=== PATIENT | male | born 1950 | race Caucasian/White ===

== ENCOUNTER 2020-06-15 01:13 | Emergency (ER) | payer MEDICARE ==
--- NOTE | 2020-06-15 01:27 | EDM.PDOC ---
ED HPI GENERAL MEDICAL PROBLEM - General Chief Complaint: General Stated Complaint: FALL Time Seen by Provider: 06/15/20 01:13 Source of Information: Reports: Patient, EMS History Limitations: Reports: Intoxication - History of Present Illness INITIAL COMMENTS - FREE TEXT/NARRATIVE: 69 year old male with PMH HTN presents to ED after a fall down 8 wooden steps into his basement. Patient admits to ETOH. Left eye swollen and bruised, left ear laceration 0.5 cm. Denies any pain, CP, SOB, abdominal pain, neck/back pain. He does not remember falling or "anything", when EMS arrived patient was sitting at the table upstairs. Ambulatory on arrival. Onset: Today Improves with: Reports: None Worsens with: Reports: None - Related Data Allergies Allergy/AdvReac Type Severity Reaction Status Date / Time No Known Allergies Allergy Verified 06/15/20 01:36 Home Meds: Home Meds Sildenafil [Revatio] 2 - 3 tab PO ASDIRECTED PRN 06/15/20 [History] lisinopriL [Lisinopril] 20 mg PO DAILY 06/15/20 [History] ED ROS GENERAL - Review of Systems Review Of Systems: See Below Constitutional: Reports: No Symptoms HEENT: Reports: Ear Pain, Eye Pain (denies pain but obvious bruising/swelling), Nosebleed Respiratory: Reports: No Symptoms Cardiovascular: Reports: No Symptoms Endocrine: Reports: No Symptoms GI/Abdominal: Reports: No Symptoms : Reports: No Symptoms Musculoskeletal: Reports: No Symptoms Skin: Reports: Bruising, Wound Neurological: Reports: Change in Speech, Other (intoxicated) Psychiatric: Reports: No Symptoms Hematologic/Lymphatic: Reports: No Symptoms Immunologic: Reports: No Symptoms ED EXAM, GENERAL - Physical Exam Exam: See Below Exam Limited By: Intoxication General Appearance: Alert, No Apparent Distress Eye Exam: Left Eye: Periorbital Changes (swelling/bruising), Other (left eye swelling), Bilateral Eye: Normal Inspection, PERRL (slow, sluggish) Ears: Normal Canal, Hearing Grossly Normal, Normal TMs, Other (0.5 cm laceration to left ear superior arti anterior side, 0.5 cm and 1cm lacerations ro posterior side) Ear Exam: Left Ear: Bleeding (superior arti 0.5 cm laceration anterior, posterior 0.5 cm, 1cm posterior), Swelling, Tenderness, Bilateral Ear: Auricle Normal, Canal Normal, TM normal Nose: Normal Inspection, Other (dries blood in bilateral nares) Throat/Mouth: Normal Inspection, Normal Lips, Normal Gums, Normal Oropharynx (no teeth), Normal Voice, No Airway Compromise Head: Facial Swelling Neck: Normal Inspection, Non-Tender, Full Range of Motion Respiratory/Chest: No Respiratory Distress, Lungs Clear, Normal Breath Sounds, No Accessory Muscle Use, Chest Non-Tender Cardiovascular: Normal Peripheral Pulses, Regular Rate, Rhythm, No Edema, No J VD, No Murmur Peripheral Pulses: 3+: Radial (L), Radial (R), Posterior Tibial (L), Posterior Tibial (R), Dorsalis Pedis (L), Dorsalis Pedis (R) GI/Abdominal: Normal Bowel Sounds, Soft, Non-Tender, Hernia Back Exam: Normal Inspection, Full Range of Motion Extremities: Normal Inspection, Normal Range of Motion, Non-Tender, No Pedal Edema, Normal Capillary Refill Neurological: Alert, Oriented, CN II-XII Intact, Normal Gait, Normal Reflexes (intoxicated), No Motor/Sensory Deficits Psychiatric: Normal Affect Skin Exam: Warm, Dry, Normal Color, No Rash, Wound/Incision (abrasion noted to left forearm) Lymphatic: No Adenopathy ED GENERAL MEDICAL PROCEDURES - Laceration/Wound Repair Left Upper Posterior Ear Lac/wound length in cm: 0.5 Distal NVT: Neuro & Vascular Intact Skin Prep: Providone-Iodine (Betadine), Saline Exploration/Debridement/Repair: Wound Explored Closed with: Dermabond (patient refused stitches to left ear) Left Posterior Ear Lac/wound length in cm: 1 Appearance: Superficial Distal NVT: Neuro & Vascular Intact Skin Prep: Saline Exploration/Debridement/Repair: Wound Explored Closed with: Dermabond Left Anterior Ear Lac/wound length in cm: 0.5 Appearance: Superficial Distal NVT: Neuro & Vascular Intact Skin Prep: Saline Exploration/Debridement/Repair: Wound Explored Closed with: Dermabond Course - Vital Signs Last Recorded V/S: Last Vital Signs Temp 98.7 F 06/15/20 01:16 Pulse 99 06/15/20 03:08 Resp 15 06/15/20 03:08 BP 134/84 06/15/20 03:08 Pulse Ox 99 06/15/20 03:08 - Orders/Labs/Meds Orders: Active Orders 24 hr Category Date Time Status Assess Neurological Status [RC] ASDIRECTED Care 06/15/20 02:12 Active Cardiac Monitoring [RC] .As Directed Care 06/15/20 02:00 Active EKG Documentation Completion [RC] ASDIRECTED Care 06/15/20 02:27 Active Neurological Monitoring [RC] ASDIRECTED Care 06/15/20 02:12 Active Cervical Spine wo Cont [CT] Stat Exams 06/15/20 01:20 Taken Head wo Cont [CT] Stat Exams 06/15/20 01:20 Taken Sodium Chloride 0.9% [Saline Flush] Med 06/15/20 02:20 Active 10 ml FLUSH ASDIRECTED PRN Peripheral IV Insertion Adult [OM.PC] Routine Oth 06/15/20 02:20 Ordered Medication Orders Sodium Chloride (Sodium Chloride 0.9% 10 Ml Syringe) 10 ml FLUSH ASDIRECTED PRN PRN Reason: Keep Vein Open Labs: Laboratory Tests 06/15/20 06/15/20 06/15/20 Range/Units 02:20 02:20 02:20 WBC 15.9 H D (4.0-11.0) K/uL RBC 4.55 (4.50-6.50) M/uL Hgb 15.0 (13.0-18.0) g/dL Hct 43.6 (40.0-54.0) % MCV 96 (76-96) fL MCH 33.0 H (27.0-32.0) pg MCHC 34.4 (31.0-35.0) g/dL RDW 12.1 (11.0-16.0) % Plt Count 267 D (150-400) K/uL MPV 10.3 H (6.0-10.0) fL Neut % (Auto) 88.9 H (45.0-70.0) % Lymph % (Auto) 6.4 L (20.0-40.0) % Preston % (Auto) 3.5 (3.0-10.0) % Eos % (Auto) 1.0 (1.0-5.0) % Baso % (Auto) 0.2 (0.0-0.5) % Neut # (Auto) 14.09 H (2.00-7.50) K/uL Lymph # (Auto) 1.02 L (1.50-4.00) K/uL Preston # (Auto) 0.55 (0.20-0.80) K/uL Eos # (Auto) 0.16 (0.04-0.40) K/uL Baso # (Auto) 0.03 (0.02-0.10) K/uL PT 10.9 (9.0-11.5) sec INR 1.1 (1.0-3.5) APTT (24.4-33.2) SECONDS Sodium 138 (136-145) mmol/L Potassium 3.7 D (3.5-5.1) mmol/L Chloride 99 (98-107) mmol/L Carbon Dioxide 22.4 D (21.0-32.0) mmol/L Anion Gap 20.3 H (5.0-15.0) mmol/L BUN 12 D (8-26) mg/dL Creatinine 1.15 (0.70-1.30) mg/dL Est Cr Clr Drug Dosing 55.48 mL/min Estimated GFR (MDRD) > 60 (>60) MLS/MIN BUN/Creatinine Ratio 10.4 (6-25) Glucose 148 H (74-100) mg/dL Calcium 7.9 L (8.5-10.1) mg/dL Total Bilirubin 0.3 (0.0-1.0) mg/dL AST 34 (15-37) U/L ALT 37 (12-78) U/L Alkaline Phosphatase 79 (46-116) U/L Troponin I (0.000-0.060) ng/mL Total Protein 7.4 (6.4-8.2) g/dL Albumin 3.6 (3.4-5.0) g/dL Globulin 3.8 (2.2-4.2) g/dL Albumin/Globulin Ratio 0.9 (0.8-2.0) Ethyl Alcohol 234.0 H (<3.0) mg/dL SARS CoV-2 RNA Rapid ALESSANDRA 06/15/20 06/15/20 06/15/20 Range/Units 02:22 02:23 02:26 WBC (4.0-11.0) K/uL RBC (4.50-6.50) M/uL Hgb (13.0-18.0) g/dL Hct (40.0-54.0) % MCV (76-96) fL MCH (27.0-32.0) pg MCHC (31.0-35.0) g/dL RDW (11.0-16.0) % Plt Count (150-400) K/uL MPV (6.0-10.0) fL Neut % (Auto) (45.0-70.0) % Lymph % (Auto) (20.0-40.0) % Preston % (Auto) (3.0-10.0) % Eos % (Auto) (1.0-5.0) % Baso % (Auto) (0.0-0.5) % Neut # (Auto) (2.00-7.50) K/uL Lymph # (Auto) (1.50-4.00) K/uL Preston # (Auto) (0.20-0.80) K/uL Eos # (Auto) (0.04-0.40) K/uL Baso # (Auto) (0.02-0.10) K/uL PT (9.0-11.5) sec INR (1.0-3.5) APTT 26.1 (24.4-33.2) SECONDS Sodium (136-145) mmol/L Potassium (3.5-5.1) mmol/L Chloride (98-107) mmol/L Carbon Dioxide (21.0-32.0) mmol/L Anion Gap (5.0-15.0) mmol/L BUN (8-26) mg/dL Creatinine (0.70-1.30) mg/dL Est Cr Clr Drug Dosing mL/min Estimated GFR (MDRD) (>60) MLS/MIN BUN/Creatinine Ratio (6-25) Glucose (74-100) mg/dL Calcium (8.5-10.1) mg/dL Total Bilirubin (0.0-1.0) mg/dL AST (15-37) U/L ALT (12-78) U/L Alkaline Phosphatase (46-116) U/L Troponin I < 0.017 (0.000-0.060) ng/mL Total Protein (6.4-8.2) g/dL Albumin (3.4-5.0) g/dL Globulin (2.2-4.2) g/dL Albumin/Globulin Ratio (0.8-2.0) Ethyl Alcohol (<3.0) mg/dL SARS CoV-2 RNA Rapid ALESSANDRA Negative Meds: Medications Generic Name Dose Route Start Last Admin Trade Name Freq PRN Reason Stop Dose Admin Sodium Chloride 10 ml 06/15/20 02:20 Sodium Chloride 0.9% 10 Ml Syringe FLUSH ASDIRECTED PRN Keep Vein Open Departure - Departure Time of Disposition: 02:58 ([id number] flight crew arrived) Disposition: DC/Tfer to Acute Hospital 02 Condition: Good Clinical Impression: Acute subdural hematoma, ETOH abuse, Periorbital hematoma of left eye - Discharge Information *PRESCRIPTION DRUG MONITORING PROGRAM REVIEWED*: Not Applicable *COPY OF PRESCRIPTION DRUG MONITORING REPORT IN PATIENT DEE: Not Applicable Instructions: Subdural Hematoma Referrals: PCP,None [Primary Care Provider] - Forms: ED Department Discharge Sepsis Event Note (ED) - Focused Exam Vital Signs: Vital Signs Temp Pulse Resp BP BP Pulse Ox 06/15/20 03:08 99 15 134/84 134/84 99 06/15/20 02:18 92 19 132/78 97 06/15/20 01:42 92 18 127/75 94 L 06/15/20 01:28 92 125/70 95 06/15/20 01:16 98.7 F 90 19 141/75 H 96 06/15/20 01:13 98.7 F 90 19 141/75 H 96 - My Orders Last 24 Hours: My Active Orders 06/15/20 01:20 Cervical Spine wo Cont [CT] Stat Head wo Cont [CT] Stat 06/15/20 02:00 Cardiac Monitoring [RC] .As Directed 06/15/20 02:12 Assess Neurological Status [RC] ASDIRECTED Neurological Monitoring [RC] ASDIRECTED 06/15/20 02:20 Sodium Chloride 0.9% [Saline Flush] 10 ml FLUSH ASDIRECTED PRN Peripheral IV Insertion Adult [OM.PC] Routine 06/15/20 02:27 EKG Documentation Completion [RC] ASDIRECTED - Assessment/Plan Last 24 Hours: My Active Orders 06/15/20 01:20 Cervical Spine wo Cont [CT] Stat Head wo Cont [CT] Stat 06/15/20 02:00 Cardiac Monitoring [RC] .As Directed 06/15/20 02:12 Assess Neurological Status [RC] ASDIRECTED Neurological Monitoring [RC] ASDIRECTED 06/15/20 02:20 Sodium Chloride 0.9% [Saline Flush] 10 ml FLUSH ASDIRECTED PRN Peripheral IV Insertion Adult [OM.PC] Routine 06/15/20 02:27 EKG Documentation Completion [RC] ASDIRECTED Assessment:: Discussed with patient transport to [facility] for subdermal frontotemporal hematoma on CT. Patient does not want to go. He would like to go by POV tomorrow. Explained risks of the bleed, patient now agreeable to plan. Plan: Head CT shows a left frontotemporal acute subdural hematoma. Patient remains neurologically intact with no deficits. Patient will be transferred to [facility] via [facility] flight, Dr. Preston accepting. SO aware of transfer.
[2020-06-15] MEDS ORDERED: Sodium Chloride 0.9% 10 ML Syringe FLUSH PRN (02:20)
--- NOTE | 2020-06-15 02:51 | PCM.EKG ---
#1 Interpretation EKG Date: 06/15/20 Time: 01:31 Rhythm: NSR Center: Normal P-Wave: Present QRS: Normal ST-T: Normal QT: Normal Comparison: NA - No Prior EKG
--- NOTE | 2020-06-16 09:21 | CT ---
Date of Service: 06/15/20 Clinical Data: fall UNENHANCED BRAIN CT: Multislice axial acquisition without IV contrast was performed. No priors. There is diffuse cerebral atrophy. There are periventricular lucencies bilaterally consistent with small vessel ischemic change, There is a trace extra-axial hyperdense subdural collection in the left frontotemporal region consistent with a small subdural hematoma. It measures 2 mm in its maximum depth. No mass effect associated with it. No other intracranial abnormalities. There is fluid in the ethmoid, left maxillary, and sphenoid sinuses consistent with sinusitis. There is preseptal soft tissue swelling on the left. There is also soft tissue swelling of the scalp adjacent to the frontal bone. No fractures. IMPRESSION: Trace subdural hematoma on the left as discussed above. Other findings as discussed above. The patient's physician was notified of the findings by telephone and by [facility] preliminary radiology report. [facility]
--- NOTE | 2020-06-16 09:35 | CT ---
Date of Service: 06/15/20 Clinical Data: Fall CERVICAL SPINE CT: Multislice axial acquisition from the base of the skull to T2 was performed. Axial images and sagittal and coronal reformations are reviewed. Motion artifact degrades image quality. There is reversal of the normal cervical lordosis on the sagittal reformations. This is most likely positional or due to muscle spasm. There is slight anterolisthesis of C4 on C5. The vertebral bodies are of average height. No acute fracture or dislocation. No lytic or blastic bone lesions. There is mild degenerative disk disease at multiple levels. There is facet joint hypertrophy at multiple levels. There are degenerative changes involving the atlantoaxial articulation. Soft tissues are unremarkable. There is scarring of both lung apices. No other significant findings. IMPRESSION: No acute abnormalities. [id number] [facility]
== END 2020-06-15 03:39 ==
LOC: LB.ED 01:13
DX: S06.5X9A Traumatic subdural hemorrhage with loss of consciousness of unspecified duration, initial encounter (principal); S01.312A Laceration without foreign body of left ear, initial encounter; S00.83XA Contusion of other part of head, initial encounter; S50.812A Abrasion of left forearm, initial encounter; F10.10 Alcohol abuse, uncomplicated; I10 Essential (primary) hypertension; Z79.899 Other long term (current) drug therapy; Z20.822 Contact with and (suspected) exposure to COVID-19; W10.8XXA Fall (on) (from) other stairs and steps, initial encounter
CPT/HCPCS: 12011; 36415; 70450; 72125; 80053; 80307; 84484; 85025; 85610; 85730; 93005; 99285; 99285-25; U0002